=== PATIENT | female | born 1980 ===

== ENCOUNTER 2016-12-14 11:33 | Emergency (ER) | payer MEDICARE, MEDICAID ==
[2016-12-14 11:35] VITALS: BMI 41.4
[2016-12-14 11:37] VITALS: BP 128/68; PULSE 71; RESP 16; TEMP 98.1; O2SAT 100
--- NOTE | 2016-12-14 11:47 | ED PDOC ---
HPI: General Adult Time Seen by Provider: 12/14/16 11:43 Chief Complaint (Provider): left ankle pain History Per: Patient History/Exam Limitations: no limitations Additional Complaint(s): 36yo female comes to the ED stating she woke up this morning unable to bear weight on the left ankle. Denies trauma, falls, any other injury to the site. Denies heavy lifting. States she walked 28,000 steps yesterday. patient states she was seen by an orthopedist recently and was told she will need fusion surgery. Last menstrual period was 11/19/2016 Past Medical History Reviewed: Historical Data, Nursing Documentation, Vital Signs Vital Signs: Last Vital Signs Temp 98.1 F 12/14/16 11:36 Pulse 71 12/14/16 11:36 Resp 16 12/14/16 11:36 BP 128/68 12/14/16 11:36 Pulse Ox 100 12/14/16 13:38 - Medical History PMH: Anemia, Asthma, Fibromyalgia, HTN, Osteoporosis Denies: Chronic Kidney Disease - Surgical History Surgical History: Cholecystectomy, Hernia Repair, Tonsillectomy, (1) - Family History Family History: States: Unknown Family Hx - Home Medications Home Medications: Ambulatory Orders Medication Instructions Recorded Bisacodyl [Dulcolax] 10 mg RC BID PRN #10 supp.rect 02/15/16 Ciprofloxacin [Cipro] 500 mg PO BID #14 tab 02/15/16 Magnesium Citrate [Citrate of 50 ml PO BID PRN #1 bottle 02/15/16 Magnesia] traMADol [Ultram] 50 mg PO TID PRN #12 tab 02/15/16 Naproxen [Naprosyn Tab] 1 tab PO Q8 PRN #15 tab 08/05/16 oxyCODONE/Acetaminophen [Percocet 1 ea PO Q6 #15 tab 08/05/16 5/325 mg Tab] predniSONE [predniSONE Tab] 2 tab PO DAILY #10 tab 08/05/16 traMADol [Ultram] 50 mg PO Q8H PRN #5 tab 10/20/16 Naproxen [Naprosyn] 500 mg PO BID PRN #20 tablet 12/14/16 - Allergies Allergies/Adverse Reactions: Allergies Allergy/AdvReac Type Severity Reaction Status Date / Time No Known Allergies Allergy Verified 08/05/16 19:49 Review of Systems ROS Statement: Except As Marked, All Systems Reviewed And Found Negative Musculoskeletal: Positive for: Other (ankle pain) Physical Exam - Reviewed Nursing Documentation Reviewed: Yes Vital Signs Reviewed: Yes - Physical Exam Appears: Positive for: Well, Non-toxic, No Acute Distress Head Exam: Positive for: ATRAUMATIC, NORMAL INSPECTION, NORMOCEPHALIC Skin: Positive for: Warm, Dry Extremity: Positive for: Tenderness (tender left plantar fascia with a little bit of increased sensitivity on dorsum of left foot. mild tenderness on lateral malleolus), Other (Good pulses bilaterally. mildly decreased strength due to pain on left. ). Negative for: Calf Tenderness, Deformity - ECG O2 Sat by Pulse Oximetry: 100 (RA) Pulse Ox Interpretation: Normal Medical Decision Making Medical Decision Makin XR Left foot, XR Left Ankle, Naprosyn, Tylenol ordered. Will consult podiatry. [id number] Patient was seen by podiatry. Disposition - Clinical Impression Clinical Impression: Overuse syndrome of foot - Patient ED Disposition Is Patient to be Admitted: No Doctor Will See Patient In The: Office Counseled Patient/Family Regarding: Diagnosis, Need For Followup, Rx Given - Disposition Referrals: [facility] [Outside] Disposition: Routine/Home Disposition Time: 14:03 Condition: STABLE Additional Instructions: Follow up with your personal sand mixer operator or with Dr. Adam Alvares, the podiatry who was ip technology transactions attorney when you visited the ER. Prescriptions: Naproxen [Naprosyn] 500 mg PO BID PRN #20 tablet PRN Reason: Pain, Moderate (4-7) Instructions: Arthralgia (ED) - POA Present On Arrival: None Additional Comments - Additional Comments Additional Comments: Scribe Attestation: Documented by Emerson Peñaloza acting as a scribe for Kassie Tamayo MD. Provider Scribe Attestation: All medical record entries made by the Scribe were at my direction and personally dictated by me. I have reviewed the chart and agree that the record accurately reflects my personal performance of the history, physical exam, medical decision making, and the department course for this patient. I have also personally directed, reviewed, and agree with the discharge instructions and disposition.
[2016-12-14] MEDS ORDERED: Naproxen 500 MG TAB PO ONE ×2 (11:54→11:58)
--- NOTE | 2016-12-14 12:51 | CP.PCM.CON ---
History of Present Illness - History of Present Illness History of Present Illness: PODIATRY PROGRESS NOTE FOR DR. ALVARES: 36 yo female patient presents to the ED today with left foot/ankle pain. Pt says that she took 28,000 steps on , has been able to walk until today. Says she cannot put weight to the left foot today. Says this amount of walking is her norm and she typically walks at least 10,000 steps /day. Says the pain is all over top of her left foot/ankle and outside of ankle. Says she also has history of plantar fasciitis. Has not seen her casing in line setter in 4 months. Says she was told at her last podiatry visit that she needed ankle fusions. Denies f/n/v/ c/sob/cp. Rates the pain as a 5/10, says heat helps, has tried tylenol with some relief. 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 - HEMATOLOGICAL/ONCOLOGICAL Hx Anemia: Yes - INTEGUMENTARY Hx Dermatological Problems: No - MUSCULOSKELETAL/RHEUMATOLOGICAL Hx Osteoporosis: Yes - GASTROINTESTINAL Hx Gastrointestinal Disorders: No - GENITOURINARY/GYNECOLOGICAL Hx Genitourinary Disorders: Yes Other/Comment: PCOS, Right Ovarian Cyst - PSYCHIATRIC Hx Psychophysiologic Disorder: No Hx Substance Use: No - SURGICAL HISTORY Hx Cholecystectomy: Yes Hx Tonsillectomy: Yes - ANESTHESIA Hx Anesthesia: Yes Hx Anesthesia Reactions: No Hx Malignant Hyperthermia: No Meds Home Medications: Home Medication List Medication Instructions Recorded Confirmed Type Naproxen [Naprosyn] 500 mg PO BID PRN #20 tablet 12/14/16 Rx Allergies/Adverse Reactions: Allergies Allergy/AdvReac Type Severity Reaction Status Date / Time No Known Allergies Allergy Verified 08/05/16 19:49 Physical Exam - Constitutional Appears: Well, Non-toxic, No Acute Distress - Extremities Exam Extremities exam: Negative for: calf tenderness Additional comments: LLE exam: VASC- pulses palpable, skin temp wnl, cap refill < 3 sec to all digits, slight non--pitting edema noted to dorsum of foot. DERM- no open wounds, no erythema NEURO- grossly intact ORTHO- able to flex and extend all digits, diffuse tenderness to dorsum of foot and lateral ankle, pedal muscle strength 5/5 in all direction, tendenress with AJ DF and STJ inversion - Neurological Exam Neurological exam: Alert, CN II-XII Intact, Oriented x3 - Psychiatric Exam Psychiatric exam: Normal Affect, Normal Mood Results - Vital Signs Recent Vital Signs: Last Vital Signs Temp 98.1 F 12/14/16 11:36 Pulse 71 12/14/16 11:36 Resp 16 12/14/16 11:36 BP 128/68 12/14/16 11:36 Pulse Ox 100 12/14/16 12:09 Assessment & Plan - Assessment and Plan (Free Text) Assessment: 36 yo female with left foot/ankle pain secondary to overuse injury Plan: -Pt S&E in ED -Plan discussed with Dr. Alvares -Left foot/ankle x-rays reviewed: no acute fx or dislocation seen -Surgical shoe dispensed and applied -Advised pt to rest, ice, elevate -Take NSAIDS for pain relief -F/u with Dr. Alvares or w/ your regular casing in line setter.
--- NOTE | 2016-12-14 14:08 | RAD ---
PROCEDURE: Left Ankle Radiographs. HISTORY: acute pain w/o injury COMPARISON: 11/10/2016. FINDINGS: BONES: No acute fracture. Well corticated osseous excrescence adjacent to the left tibia finding identified previously appear JOINTS: Normal. No osteoarthritis. Ankle mortise maintained. Talar dome intact SOFT TISSUES: Normal. OTHER FINDINGS: None. IMPRESSION: No acute findings related to/accounting for the clinical presentation. No significant interval change compared to the prior examination(s).
--- NOTE | 2016-12-15 09:22 | RAD ---
PROCEDURE: Left Foot Radiographs. HISTORY: Acute pain w/o injury COMPARISON: 10/20/2016 FINDINGS: BONES: There is no acute displaced fracture or bone destruction. Bone alignment and mineralization are normal. JOINTS: The joint spaces are preserved. SOFT TISSUES: There is mild dorsal soft tissue swelling. OTHER FINDINGS: None. IMPRESSION: No acute fracture or dislocation.
== END 2016-12-14 14:28 | disposition home or self-care (01) ==
LOC: H.ER 11:33
DX: M25.572 Pain in left ankle and joints of left foot (principal); M70.9 Unspecified soft tissue disorder related to use, overuse and pressure; I10 Essential (primary) hypertension; J45.909 Unspecified asthma, uncomplicated; M79.7 Fibromyalgia

== ENCOUNTER 2017-01-09 09:34 | Emergency (ER) | payer MEDICARE ==
[2017-01-09 09:35] VITALS: BMI 41.4
--- NOTE | 2017-01-09 10:35 | ED PDOC ---
Upper Extremity Pain/Injury Time Seen by Provider: 01/09/17 09:54 Chief Complaint (Nursing): Abnormal Skin Integrity History Per: Patient History/Exam Limitations: no limitations Onset/Duration Of Symptoms: Days (2), Gradual Current Symptoms Are (Timing): Still Present Quality: Dull Severity: Mild Elbow (Pic): 1 - Swelling, Erythema, Pain Worse W/Movement Additional History Per: Patient Additional Complaint(s): c/o pain, redness, swelling, and pus on her right elbow. Reports 100.2 last night. Patient hit her right elbow on the door 2 days ago. no chills no prev sx Past Medical History Reviewed: Historical Data, Nursing Documentation, Vital Signs Vital Signs: Last Vital Signs Temp 98.3 F 01/09/17 09:38 Pulse 90 01/09/17 09:38 Resp 19 01/09/17 09:38 BP 123/84 01/09/17 09:38 Pulse Ox 99 01/09/17 09:38 - Medical History PMH: Anemia, Asthma, Fibromyalgia, HTN, Osteoporosis Denies: Chronic Kidney Disease - Surgical History Surgical History: Cholecystectomy, Hernia Repair, Tonsillectomy, (1) - Family History Family History: States: Unknown Family Hx - Living Arrangements Living Arrangements: With Family - Social History Current smoker - smoking cessation education provided: No Drugs: Denies - Immunization History Hx Tetanus Toxoid Vaccination: No Hx Influenza Vaccination: No Hx Pneumococcal Vaccination: No - Home Medications Home Medications: Ambulatory Orders Medication Instructions Recorded Bisacodyl [Dulcolax] 10 mg RC BID PRN #10 supp.rect 02/15/16 Ciprofloxacin [Cipro] 500 mg PO BID #14 tab 02/15/16 Magnesium Citrate [Citrate of 50 ml PO BID PRN #1 bottle 02/15/16 Magnesia] traMADol [Ultram] 50 mg PO TID PRN #12 tab 02/15/16 Naproxen [Naprosyn Tab] 1 tab PO Q8 PRN #15 tab 08/05/16 oxyCODONE/Acetaminophen [Percocet 1 ea PO Q6 #15 tab 08/05/16 5/325 mg Tab] predniSONE [predniSONE Tab] 2 tab PO DAILY #10 tab 08/05/16 traMADol [Ultram] 50 mg PO Q8H PRN #5 tab 10/20/16 Naproxen [Naprosyn] 500 mg PO BID PRN #20 tablet 12/14/16 Cephalexin [Keflex] 500 mg PO QID #40 capsule 01/09/17 Clindamycin [Cleocin] 300 mg PO QID #40 cap 01/09/17 oxyCODONE/Acetaminophen [Percocet 1 ea PO Q6 PRN #15 tab 01/09/17 5/325 mg Tab] - Allergies Allergies/Adverse Reactions: Allergies Allergy/AdvReac Type Severity Reaction Status Date / Time No Known Allergies Allergy Verified 08/05/16 19:49 Review of Systems ROS Statement: Except As Marked, All Systems Reviewed And Found Negative Constitutional: Positive for: Fever. Negative for: Chills Cardiovascular: Negative for: Chest Pain, Palpitations Respiratory: Negative for: Cough, Shortness of Breath Musculoskeletal: Positive for: Arm Pain (left elbow pain with erythema and swelling) Neurological: Negative for: Weakness, Numbness Physical Exam - Reviewed Nursing Documentation Reviewed: Yes Vital Signs Reviewed: Yes - Physical Exam Appears: Positive for: Well, No Acute Distress Head Exam: Positive for: ATRAUMATIC, NORMAL INSPECTION, NORMOCEPHALIC Eye Exam: Positive for: Normal appearance, EOMI, PERRL Neck: Positive for: Normal, Painless ROM, Supple Cardiovascular/Chest: Positive for: Regular Rate, Rhythm Respiratory: Positive for: Normal Breath Sounds Pulses-Radial (L): 2+ Pulses-Radial (R): 2+ Gastrointestinal/Abdominal: Positive for: Normal Exam, Bowel Sounds, Soft. Negative for: Tenderness Extremity: Positive for: Normal ROM, Tenderness (at left elbow with mod erythema nad swelling small daraing abscess no fluctuance), Swelling. Negative for: Calf Tenderness, Capillary Refill, Deformity Neurologic/Psych: Positive for: Alert, car rental sales assistant II-XII, Oriented. Negative for: Motor/Sensory Deficits - Laboratory Results Result Diagrams: 01/09/17 11:11 01/09/17 11:11 - ECG O2 Sat by Pulse Oximetry: 99 Pulse Ox Interpretation: Normal - Progress ED Course And Treament: no fluib in elbow joint, no signso fo sepsis or septic arthritis advise close f/ u with cultured will place on clinda and keflex. percocet for pain. pt agree's with plan. Re-evaluation Time: 12:35 Condition: Improved Disposition - Clinical Impression Clinical Impression: Olecranon bursitis of right elbow - Patient ED Disposition Is Patient to be Admitted: No Counseled Patient/Family Regarding: Studies Performed, Diagnosis, Need For Followup, Rx Given - Disposition Referrals: [facility] [Outside] (2 to 3 days for a wound check) Disposition: Routine/Home Disposition Time: 12:37 Condition: GOOD Prescriptions: Cephalexin [Keflex] 500 mg PO QID #40 capsule Clindamycin [Cleocin] 300 mg PO QID #40 cap oxyCODONE/Acetaminophen [Percocet 5/325 mg Tab] 1 ea PO Q6 PRN #15 tab PRN Reason: Pain, Moderate (4-7)
[2017-01-09] MEDS ORDERED: Vancomycin 1 g Inj ONE (10:58)
[2017-01-09 11:16] LABS: BASO % 0.4 % (0.0-2.0); EOS # 0.1 K/uL (0.0-0.7); EOS % 1.1 % (0.0-4.0); HEMATOCRIT 35.7 % (34.0-47.0); LYMPH # 1.4 K/uL (1.0-4.3); LYMPH % 19.9 % (20.0-40.0); MEAN PLATELET VOLUME 9.1 fl (7.2-11.7); MONO # 0.6 K/uL (0.0-0.8); MONO % 8.2 % (0.0-10.0); NEUT % 70.4 % (50.0-75.0); RED CELL DISTRIBUTION WIDTH 15.4 % (11.5-14.5); WHITE BLOOD COUNT 7.1 K/uL (4.8-10.8)
--- NOTE | 2017-01-09 11:21 | RAD ---
PROCEDURE: Radiographs of the right elbow. HISTORY: pain and swelling COMPARISON: None available. FINDINGS: BONES: No acute displaced fracture. JOINTS: No dislocation. SOFT TISSUES: Marked soft tissue swelling. No evidence of radiopaque foreign body. JOINT EFFUSION: No significant joint effusion. OTHER FINDINGS: None IMPRESSION: Marked soft tissue swelling. No acute displaced fracture, dislocation, or significant joint effusion identified. If symptoms persist, or if there is continued clinical concern, x-ray follow-up in 7-10 days should be considered.
[2017-01-09 11:37] LABS: CHLORIDE 107 mmol/L (98-107)
[2017-01-09 11:38] LABS: POTASSIUM 5.3 MMOL/L (3.6-5.0); SODIUM 140 mmol/l (132-148)
[2017-01-09 11:40] LABS: ALKALINE PHOSPHATASE 64 U/L (38-126); ALT/SGPT 23 U/L (9-52); AST/SGOT 93 U/L (14-36); BILIRUBIN,TOTAL 0.9 mg/dl (0.2-1.3); BLOOD UREA NITROGEN 12 mg/dl (7-17); CARBON DIOXIDE 22 mmol/L (22-30); GFR AFRICAN-AMERICAN > 60; TOTAL PROTEIN 8.2 G/DL (6.3-8.2)
[2017-01-09 11:41] LABS: GLUCOSE,RANDOM 85 mg/dL (65-105)
[2017-01-09] MEDS ORDERED: cefTRIAXone 2 GM in Sodium Chloride 0.9% 100 ML IVPB ONE (12:00)
[2017-01-09 12:19] LABS: CALCIUM 8.8 mg/dL (8.4-10.2)
[2017-01-09 14:30] VITALS: BP 155/68; PULSE 82; RESP 18; TEMP 98.2; O2SAT 98
== END 2017-01-09 14:30 | disposition home or self-care (01) ==
LOC: H.ER 09:34
DX: M70.21 Olecranon bursitis, right elbow (principal); I10 Essential (primary) hypertension; M79.7 Fibromyalgia; M81.0 Age-related osteoporosis without current pathological fracture; J45.909 Unspecified asthma, uncomplicated
CPT/HCPCS: 73080; 80053; 81025; 85025; 85651; 87070; 87181; 96365; 96366; 99284; J0696

== ENCOUNTER 2017-01-11 22:53 | Emergency (ER) | payer MEDICARE ==
[2017-01-11 22:53] VITALS: BMI 41.4
[2017-01-11 23:10] VITALS: BP 119/79; PULSE 100; RESP 16; TEMP 98.4; O2SAT 99
--- NOTE | 2017-01-12 01:31 | ED PDOC ---
HPI: General Adult Time Seen by Provider: 01/11/17 23:24 Chief Complaint (Nursing): Abnormal Skin Integrity Chief Complaint (Provider): wound check History Per: Patient Additional Complaint(s): pt returns to ED for reeval of wound to R elbow. was seen here for same 3 days ago, given clindamycin and keflex. redness and swelling are improving but pt is concerned about blister that appeared on skin surface. no fever, numbness, weakness distally or red streaking proximally. Past Medical History Reviewed: Historical Data, Nursing Documentation, Vital Signs Vital Signs: Last Vital Signs Temp 98.4 F 01/11/17 23:06 Pulse 100 H 01/11/17 23:06 Resp 16 01/11/17 23:06 BP 119/79 01/11/17 23:06 Pulse Ox 99 01/11/17 23:06 - Medical History PMH: Anemia, Asthma, Fibromyalgia, HTN, Osteoporosis Denies: Chronic Kidney Disease - Surgical History Surgical History: Cholecystectomy, Hernia Repair, Tonsillectomy, (1) - Family History Family History: States: No Known Family Hx - Social History Current smoker - smoking cessation education provided: No Alcohol: None - Immunization History Hx Tetanus Toxoid Vaccination: No Hx Influenza Vaccination: No Hx Pneumococcal Vaccination: No - Home Medications Home Medications: Ambulatory Orders Medication Instructions Recorded Bisacodyl [Dulcolax] 10 mg RC BID PRN #10 supp.rect 02/15/16 Ciprofloxacin [Cipro] 500 mg PO BID #14 tab 02/15/16 Magnesium Citrate [Citrate of 50 ml PO BID PRN #1 bottle 02/15/16 Magnesia] traMADol [Ultram] 50 mg PO TID PRN #12 tab 02/15/16 Naproxen [Naprosyn Tab] 1 tab PO Q8 PRN #15 tab 08/05/16 oxyCODONE/Acetaminophen [Percocet 1 ea PO Q6 #15 tab 08/05/16 5/325 mg Tab] predniSONE [predniSONE Tab] 2 tab PO DAILY #10 tab 08/05/16 traMADol [Ultram] 50 mg PO Q8H PRN #5 tab 10/20/16 Naproxen [Naprosyn] 500 mg PO BID PRN #20 tablet 12/14/16 Cephalexin [Keflex] 500 mg PO QID #40 capsule 01/09/17 Clindamycin [Cleocin] 300 mg PO QID #40 cap 01/09/17 oxyCODONE/Acetaminophen [Percocet 1 ea PO Q6 PRN #15 tab 01/09/17 5/325 mg Tab] - Allergies Allergies/Adverse Reactions: Allergies Allergy/AdvReac Type Severity Reaction Status Date / Time No Known Allergies Allergy Verified 08/05/16 19:49 Review of Systems ROS Statement: Except As Marked, All Systems Reviewed And Found Negative Skin: Positive for: Lesions Physical Exam - Reviewed Nursing Documentation Reviewed: Yes Vital Signs Reviewed: Yes - Physical Exam Appears: Positive for: Well, Non-toxic, No Acute Distress Skin: Positive for: Normal Color (mild errythema R elbow w/ purulent bulla. no fluctuance or crepitis. ), Warm Neck: Positive for: Normal, Painless ROM Cardiovascular/Chest: Positive for: Regular Rate, Rhythm Respiratory: Positive for: CNT, Normal Breath Sounds Gastrointestinal/Abdominal: Positive for: Normal Exam, Bowel Sounds, Soft. Negative for: Tenderness Extremity: Positive for: Normal ROM. Negative for: Tenderness Neurologic/Psych: Positive for: Alert, Oriented. Negative for: Motor/Sensory Deficits - ECG O2 Sat by Pulse Oximetry: 99 Medical Decision Making Medical Decision Making: bullae deroofed with forceps and #15 blade. purulent drainage present. previous record reviewed. aspirate shows staph aureus suseptible to clindamycin. sx improving per pt. will d/c home to f/u pmd. Disposition - Clinical Impression Clinical Impression: Cellulitis of right elbow - Patient ED Disposition Is Patient to be Admitted: No - Disposition Referrals: Zeyad Hamlin MD [Primary Care Provider] - Disposition: Routine/Home Disposition Time: 01:31 Condition: GOOD Additional Instructions: continue at home meds. f/u pmd for further care. return to ED for severe symptoms. Instructions: Cellulitis (ED)
== END 2017-01-12 01:48 | disposition home or self-care (01) ==
LOC: H.ER 22:53
DX: L03.113 Cellulitis of right upper limb (principal); I10 Essential (primary) hypertension; J45.909 Unspecified asthma, uncomplicated; M79.7 Fibromyalgia

== ENCOUNTER 2017-03-17 09:39 | Emergency (ER) | payer MEDICARE, MEDICAID ==
[2017-03-17 09:45] VITALS: BMI 39.9
--- NOTE | 2017-03-17 10:18 | ED PDOC ---
HPI: Abdomen Time Seen by Provider: 03/17/17 09:49 Chief Complaint (Nursing): Abdominal Pain Chief Complaint (Provider): Abdominal Pain History Per: Patient History/Exam Limitations: no limitations Onset/Duration Of Symptoms: Days (x2 days) Current Symptoms Are (Timing): Still Present Additional Complaint(s): 37 y/o female with a past medical history of hypertension who presents to the emergency department with a complaint of a lower abdominal pain that radiates to the back x2 days. Associated with a headache, nausea, and shortness of breath. Reports using her asthma pump more than usual. States her blood pressure was 140/81 this morning and takes labetalol for her condition. Patient used heating pads and ibuprofen for relief of symptoms. Denies any further medical complaints. PMD: Dr. Zeyad Hamlin MD Abnormal Vaginal Bleeding: No Past Medical History Reviewed: Historical Data, Nursing Documentation, Vital Signs Vital Signs: Last Vital Signs Temp 98.7 F 03/17/17 09:45 Pulse 73 03/17/17 09:45 Resp 18 03/17/17 09:45 BP 127/89 03/17/17 09:45 Pulse Ox 98 03/17/17 14:11 - Medical History PMH: Anemia, Asthma, Depression, Fibromyalgia, HTN, Osteoporosis Denies: Chronic Kidney Disease - Surgical History Surgical History: Appendectomy, Cholecystectomy, Hernia Repair, Tonsillectomy, C -Section (1) - Family History Family History: States: Unknown Family Hx - Social History Current smoker - smoking cessation education provided: No Alcohol: None Drugs: Denies - Immunization History Hx Tetanus Toxoid Vaccination: No Hx Influenza Vaccination: No Hx Pneumococcal Vaccination: No - Home Medications Home Medications: Ambulatory Orders Medication Instructions Recorded Bisacodyl [Dulcolax] 10 mg RC BID PRN #10 supp.rect 02/15/16 Ciprofloxacin [Cipro] 500 mg PO BID #14 tab 02/15/16 Magnesium Citrate [Citrate of 50 ml PO BID PRN #1 bottle 02/15/16 Magnesia] traMADol [Ultram] 50 mg PO TID PRN #12 tab 02/15/16 Naproxen [Naprosyn Tab] 1 tab PO Q8 PRN #15 tab 08/05/16 oxyCODONE/Acetaminophen [Percocet 1 ea PO Q6 #15 tab 08/05/16 5/325 mg Tab] predniSONE [predniSONE Tab] 2 tab PO DAILY #10 tab 08/05/16 traMADol [Ultram] 50 mg PO Q8H PRN #5 tab 10/20/16 Naproxen [Naprosyn] 500 mg PO BID PRN #20 tablet 12/14/16 Cephalexin [Keflex] 500 mg PO QID #40 capsule 01/09/17 Clindamycin [Cleocin] 300 mg PO QID #40 cap 01/09/17 oxyCODONE/Acetaminophen [Percocet 1 ea PO Q6 PRN #15 tab 01/09/17 5/325 mg Tab] Naproxen [Naprosyn] 500 mg PO BID PRN #15 tablet 03/17/17 - Allergies Allergies/Adverse Reactions: Allergies Allergy/AdvReac Type Severity Reaction Status Date / Time No Known Allergies Allergy Verified 08/05/16 19:49 Review of Systems ROS Statement: Except As Marked, All Systems Reviewed And Found Negative Constitutional: Positive for: Fever (Subjective) Respiratory: Positive for: Shortness of Breath Gastrointestinal: Positive for: Nausea, Abdominal Pain (Lower region) Musculoskeletal: Positive for: Back Pain Neurological: Positive for: Headache Physical Exam - Reviewed Nursing Documentation Reviewed: Yes Vital Signs Reviewed: Yes - Physical Exam Appears: Positive for: Non-toxic, No Acute Distress Head Exam: Positive for: ATRAUMATIC, NORMAL INSPECTION, NORMOCEPHALIC Skin: Positive for: Normal Color, Warm, Dry Eye Exam: Positive for: Normal appearance, EOMI, PERRL Neck: Positive for: Normal, Supple Cardiovascular/Chest: Positive for: Regular Rate, Rhythm. Negative for: Murmur Respiratory: Positive for: Normal Breath Sounds. Negative for: Accessory Muscle Use, Wheezing, Respiratory Distress Gastrointestinal/Abdominal: Positive for: Soft, Tenderness (Minimal RLQ tenderness). Negative for: Normal Exam, Guarding, Rebound Back: Positive for: Normal Inspection Extremity: Positive for: Normal ROM Neurologic/Psych: Positive for: Alert, remote sensing analyst II-XII, Oriented. Negative for: Motor/Sensory Deficits - Laboratory Results Result Diagrams: 03/17/17 10:20 03/17/17 10:20 - ECG O2 Sat by Pulse Oximetry: 98 (RA) Pulse Ox Interpretation: Normal Medical Decision Making Medical Decision Making: Time: 10:01 Initial impression: Abdominal Pain Initial plan: --CMP --Urine DIP --Urine Preg --CBC w. diff --PTT --Prothrombin --Urinalysis --Reevaluation Time: 10:38 --Abd & Pelvis IV Contrast CT --Transvaginal US Time: 13:39 --Transvaginal US FINDINGS: UTERUS: Measures 8.2 x 3.3 x 4.9 cm. Anteverted. ENDOMETRIUM: Measures 1 cm in diameter. CERVIX: Nabothian cysts. RIGHT OVARY: Measures 3.4 x 2.8 x 2.0 cm. Blood flow is demonstrated. Follicles. LEFT OVARY: Measures 2.7 x 1.8 x 2.8 cm. Blood flow is demonstrated. Follicles. FREE FLUID: No significant free fluid noted. OTHER FINDINGS: None. IMPRESSION: No acute pathology demonstrated. Incidental findings as above. Time: 13:58 --Abdomen CT FINDINGS: LOWER THORAX: Unremarkable. LIVER: Unremarkable. No gross lesion or ductal dilatation. GALLBLADDER AND BILE DUCTS: Status post cholecystectomy PANCREAS: Unremarkable. No gross lesion or ductal dilatation. SPLEEN: Unremarkable. ADRENALS: Unremarkable. No mass. KIDNEYS AND URETERS: Unremarkable. No hydronephrosis. No solid mass. VASCULATURE: Unremarkable. No aortic aneurysm. BOWEL: Evidence of prior gastric surgery, possibly gastric bypass surgery. Gastrojejunostomy. Question of partial gastrectomy. There is a small bowel anastomosis noted in the left lower quadrant of the abdomen with focal dilatation of the bowel. There is no evidence of bowel obstruction. There is diverticulosis of the sigmoid colon. There is no evidence of diverticulitis. APPENDIX: Normal appendix. PERITONEUM: No ascites. Apparent mesh repair of a supraumbilical ventral hernia. LYMPH NODES: Unremarkable. No enlarged lymph nodes. BLADDER: Heterogeneous attenuation within the bladder due to mixing of excreted contrast with normal urine. REPRODUCTIVE: Unremarkable uterus. BONES: Chronic compression deformity L1 vertebra, unchanged in appearance from prior CT examination. OTHER FINDINGS: None. IMPRESSION: No evidence of appendicitis. No bowel obstruction. Status post cholecystectomy. Questionable gastric bypass surgery with partial gastrectomy. Additional findings as above. Time: 14:05 Upon provider reevaluation patient is feeling better, is medically stable, and requires no further treatment in the ED at this time. Patient will be discharge home and given an Rx for Naprosyn 500 mg. Counseling was provided and all questions were answered regarding diagnosis and need for follow up with Zeyad Hamlin MD. There is agreement to discharge plan. Return if symptoms persist or worsen. Clinical Impression: Abdominal pain in female Scribe Attestation: Documented by Siena Garvey, acting as a scribe for Mami Geiger MD. Provider Scribe Attestation: All medical record entries made by the Scribe were at my direction and personally dictated by me. I have reviewed the chart and agree that the record accurately reflects my personal performance of the history, physical exam, medical decision making, and the department course for this patient. I have also personally directed, reviewed, and agree with the discharge instructions and disposition. Disposition - Clinical Impression Clinical Impression: Abdominal pain in female - Patient ED Disposition Is Patient to be Admitted: No Counseled Patient/Family Regarding: Studies Performed, Diagnosis, Need For Followup - Disposition Referrals: Zeyad Halmin MD [Family Provider] - Disposition: Routine/Home Disposition Time: 14:05 Condition: STABLE Prescriptions: Naproxen [Naprosyn] 500 mg PO BID PRN #15 tablet PRN Reason: Pain, Moderate (4-7) Instructions: Abdominal Pain (ED) Forms: [facility] (Nepali)
[2017-03-17 10:37] LABS: BASO % 0.7 % (0.0-2.0); EOS # 0.1 K/uL (0.0-0.7); EOS % 1.1 % (0.0-4.0); HEMATOCRIT 34.6 % (34.0-47.0); LYMPH # 1.8 K/uL (1.0-4.3); LYMPH % 30.6 % (20.0-40.0); MEAN CELL VOLUME 85.2 fl (81.0-99.0); MEAN CORPUSCULAR HEMOGLOBIN 27.9 pg (27.0-31.0); MEAN CORPUSCULAR HGB CONC 32.7 g/dL (33.0-37.0); MEAN PLATELET VOLUME 8.7 fl (7.2-11.7); MONO # 0.5 K/uL (0.0-0.8); NEUT # 3.4 K/uL (1.8-7.0); NEUT % 58.6 % (50.0-75.0); NRBC % 0.1 % (0.0-0.0); RED CELL DISTRIBUTION WIDTH 16.2 % (11.5-14.5); WHITE BLOOD COUNT 5.8 K/uL (4.8-10.8)
[2017-03-17 10:41] LABS: ALB/GLOB RATIO 1.3 (1.0-2.1); ALKALINE PHOSPHATASE 60 U/L (38-126); ALT/SGPT 32 U/L (9-52); AST/SGOT 22 U/L (14-36); BILIRUBIN,TOTAL 0.3 mg/dl (0.2-1.3); BLOOD UREA NITROGEN 13 mg/dl (7-17); CARBON DIOXIDE 25 mmol/L (22-30); CHLORIDE 107 mmol/L (98-107); GFR AFRICAN-AMERICAN > 60; GLUCOSE,RANDOM 87 mg/dL (65-105); POTASSIUM 3.9 MMOL/L (3.6-5.0); RBC URINE 2 /hpf (0-3); SODIUM 140 mmol/l (132-148); TOTAL PROTEIN 7.1 G/DL (6.3-8.2); URINE BILIRUBIN NEGATIVE (NEGATIVE); URINE BLOOD NEGATIVE (NEGATIVE); URINE COLOR YELLOW (YELLOW); URINE GLUCOSE (UA) NEG (Normal); URINE KETONE NEGATIVE (NEGATIVE); URINE LEUKOCYTE ESTERASE NEG Leu/uL (Negative); URINE PROTEIN NEGATIVE (NEGATIVE); WBC URINE 3 /hpf (0-5)
[2017-03-17 10:56] LABS: PARTIAL THROMBOPLASTIN TIME 30.1 Seconds (25.6-37.1)
[2017-03-17] MEDS ORDERED: Sodium Chloride 0.9% 50 ML IV ONE (12:49)
[2017-03-17] MEDS ORDERED: Iohexol 300 100 ML IJ ONE (12:49)
--- NOTE | 2017-03-17 13:40 | US ---
HISTORY: RLQ pain COMPARISON: Transvaginal pelvic ultrasound performed 02/15/16 TECHNIQUE: Transvaginal pelvic ultrasound FINDINGS: UTERUS: Measures 8.2 x 3.3 x 4.9 cm. Anteverted. ENDOMETRIUM: Measures 1 cm in diameter. CERVIX: Nabothian cysts. RIGHT OVARY: Measures 3.4 x 2.8 x 2.0 cm. Blood flow is demonstrated. Follicles. LEFT OVARY: Measures 2.7 x 1.8 x 2.8 cm. Blood flow is demonstrated. Follicles. FREE FLUID: No significant free fluid noted. OTHER FINDINGS: None. IMPRESSION: No acute pathology demonstrated. Incidental findings as above.
--- NOTE | 2017-03-17 14:00 | CT ---
PROCEDURE: CT Abdomen and Pelvis with contrast HISTORY: RLQ pain COMPARISON: None. TECHNIQUE: Contrast dose: 40 mL Omnipaque 300 Please note that only approximately 40 mL was successfully administered intravenously due to leakage from the intravenous port during the injection. Radiation dose: Total exam DLP = 956.93 mGy-cm. This CT exam was performed using one or more of the following dose reduction techniques: Automated exposure control, adjustment of the mA and/or kV according to patient size, and/or use of iterative reconstruction technique. FINDINGS: LOWER THORAX: Unremarkable. LIVER: Unremarkable. No gross lesion or ductal dilatation. GALLBLADDER AND BILE DUCTS: Status post cholecystectomy PANCREAS: Unremarkable. No gross lesion or ductal dilatation. SPLEEN: Unremarkable. ADRENALS: Unremarkable. No mass. KIDNEYS AND URETERS: Unremarkable. No hydronephrosis. No solid mass. VASCULATURE: Unremarkable. No aortic aneurysm. BOWEL: Evidence of prior gastric surgery, possibly gastric bypass surgery. Gastrojejunostomy. Question of partial gastrectomy. There is a small bowel anastomosis noted in the left lower quadrant of the abdomen with focal dilatation of the bowel. There is no evidence of bowel obstruction. There is diverticulosis of the sigmoid colon. There is no evidence of diverticulitis. APPENDIX: Normal appendix. PERITONEUM: No ascites. Apparent mesh repair of a supraumbilical ventral hernia. LYMPH NODES: Unremarkable. No enlarged lymph nodes. BLADDER: Heterogeneous attenuation within the bladder due to mixing of excreted contrast with normal urine. REPRODUCTIVE: Unremarkable uterus. BONES: Chronic compression deformity L1 vertebra, unchanged in appearance from prior CT examination. OTHER FINDINGS: None. IMPRESSION: No evidence of appendicitis. No bowel obstruction. Status post cholecystectomy. Questionable gastric bypass surgery with partial gastrectomy. Additional findings as above.
[2017-03-17 14:48] VITALS: BP 110/68; PULSE 74; RESP 19; TEMP 98.3; O2SAT 100
== END 2017-03-17 14:52 | disposition home or self-care (01) ==
LOC: H.ER 09:39
DX: R10.9 Unspecified abdominal pain (principal); R51 Headache; J45.909 Unspecified asthma, uncomplicated; F32.9 Major depressive disorder, single episode, unspecified; I10 Essential (primary) hypertension; M79.7 Fibromyalgia; Z90.49 Acquired absence of other specified parts of digestive tract
CPT/HCPCS: 74177; 76830; 80053; 81003; 81025; 85025; 85610; 85730; 99284; Q9967

== ENCOUNTER 2017-10-17 13:15 | Emergency (ER) | payer MEDICARE, MEDICAID ==
[2017-10-17 13:15] VITALS: BMI 39.9
[2017-10-17 13:22] VITALS: BP 121/82; PULSE 70; RESP 16; TEMP 97.8; O2SAT 100
--- NOTE | 2017-10-17 13:37 | ED PDOC ---
HPI: Chest Pain Time Seen by Provider: 10/17/17 13:36 Chief Complaint (Nursing): Chest Pain Chief Complaint (Provider): chest pain History Per: Patient Additional Complaint(s): 37 year female presents to emergency Department with midsternal chest pain that started 1 hour ago. Patient states she is making eggs at home when the pain started. Patient has slight shortness of breath. She called ambulance and was brought here. Patient denies cough, fever or chills, no abdominal pain, nausea, vomiting or diarrhea. Patient states she has history of anxiety, costochondritis and PE. PMD: [place] Past Medical History Reviewed: Historical Data, Nursing Documentation, Vital Signs Vital Signs: Last Vital Signs Temp 97.8 F 10/17/17 13:19 Pulse 70 10/17/17 13:19 Resp 16 10/17/17 13:19 BP 121/82 10/17/17 13:19 Pulse Ox 100 10/17/17 15:26 - Medical History PMH: Anemia, Asthma, Depression, Fibromyalgia, HTN, Osteoporosis - Surgical History Surgical History: Appendectomy, Cholecystectomy, Hernia Repair, Tonsillectomy, C -Section (1) Other surgeries: gastric bypass - Family History Family History: States: No Known Family Hx - Living Arrangements Living Arrangements: With Family - Social History Current smoker - smoking cessation education provided: No Alcohol: None Drugs: Denies - Home Medications Home Medications: Ambulatory Orders Medication Instructions Recorded Bisacodyl [Dulcolax] 10 mg RC BID PRN #10 supp.rect 02/15/16 Ciprofloxacin [Cipro] 500 mg PO BID #14 tab 02/15/16 Magnesium Citrate 50 ml PO BID PRN #1 bottle 02/15/16 traMADol [Ultram] 50 mg PO TID PRN #12 tab 02/15/16 Naproxen [Naprosyn Tab] 1 tab PO Q8 PRN #15 tab 08/05/16 oxyCODONE/Acetaminophen [Percocet 1 ea PO Q6 #15 tab 08/05/16 5/325 mg Tab] predniSONE [predniSONE Tab] 2 tab PO DAILY #10 tab 08/05/16 traMADol [Ultram] 50 mg PO Q8H PRN #5 tab 10/20/16 Naproxen [Naprosyn] 500 mg PO BID PRN #20 tablet 12/14/16 Cephalexin [Keflex] 500 mg PO QID #40 capsule 01/09/17 Clindamycin [Cleocin] 300 mg PO QID #40 cap 01/09/17 oxyCODONE/Acetaminophen [Percocet 1 ea PO Q6 PRN #15 tab 01/09/17 5/325 mg Tab] Naproxen [Naprosyn] 500 mg PO BID PRN #15 tablet 03/17/17 traMADol [Ultram] 50 mg PO TID PRN #15 tab 10/17/17 - Allergies Allergies/Adverse Reactions: Allergies Allergy/AdvReac Type Severity Reaction Status Date / Time No Known Allergies Allergy Verified 10/17/17 13:19 CEFERINO Risk Score for UA/NSTEMI - CEFERINO Risk Score Age > 64: NO 3 or more CAD Risk Factors: NO Known CAD (Stenosis greater than 50%): NO Aspirin use in past 7 days: NO Severe Angina: NO EKG ST changes greater than 0.5mm: NO Positive Cardiac Marker: NO CEFERINO Score: 0 Risk %: 5% Curb-65 Severity Score - CURB-65 Severity Score Confusion: No Bun >19mg/dl (>7mmol/L): No Respiratory Rate greater than/equal to 30: No Systolic BP <90 or Diastolic BP less than/equal 60mmHg: No Age >64: No Curb-65 Score: 0 Percentage 30-day mortality: 0.6% Wells Criteria for PE - Wells Criteria for Pulmonary Embolism Clinical Signs and Symptoms of DVT: No P.E is #1 Diagnosis, or Equally Likely: No Heart Rate >100: No Immobilization at least 3 days;Surgery previous 4 weeks: No Previous, objectively diagnosed PE or DVT: No Hemoptysis: No Malignancy w/treatment within 6 months, or palliative: No Total Score: 0 Review of Systems ROS Statement: Except As Marked, All Systems Reviewed And Found Negative Constitutional: Negative for: Fever, Chills Cardiovascular: Positive for: Chest Pain. Negative for: Palpitations, Edema, Light Headedness Respiratory: Positive for: Shortness of Breath. Negative for: Cough, SOB with Exertion, Wheezing Gastrointestinal: Negative for: Nausea, Vomiting, Abdominal Pain, Diarrhea Neurological: Negative for: Headache, Dizziness Physical Exam - Reviewed Nursing Documentation Reviewed: Yes Vital Signs Reviewed: Yes - Physical Exam Appears: Positive for: Well, Non-toxic, No Acute Distress Skin: Negative for: Rash Eye Exam: Positive for: Normal appearance Cardiovascular/Chest: Positive for: Regular Rate, Rhythm, Other (Diffuse tenderness to anterior chest wall upon palpation) Respiratory: Positive for: Normal Breath Sounds. Negative for: Wheezing, Respiratory Distress Gastrointestinal/Abdominal: Positive for: Soft. Negative for: Tenderness, Distended, Guarding Extremity: Positive for: Normal ROM Neurologic/Psych: Positive for: Alert, Oriented - Laboratory Results Result Diagrams: 10/17/17 14:30 10/17/17 14:30 Urine POC: Negative - ECG Interpretation Of ECG: Normal sinus rhythm 70 bpm, no acute changes, reviewed by PA and ED attending. O2 Sat by Pulse Oximetry: 100 Pulse Ox Interpretation: Normal - Other Rad CXR X-Ray: Interpreted by Me, Viewed By Me X-Ray Interpretation: no acute finding Medical Decision Making Medical Decision Makin37 year old with chest pain, EKG normal Plan: CBC CMP Trop D-Dimer CXR EKG IVF IV toradol D-dimer is negative. Patient states chest pain is somewhat improved after medications given. Patient states 5 days ago she fell in the tub at home injuring her lower back and left- side ribs. She was seen by primary doctor the day after the fall and had outpatient x-rays which were negative. Patient states her whole body is sore since that fall. Will DC with prescription for tramadol. Patient currently takes Naprosyn daily and was advised to continue with this medication. Patient was instructed to follow up with primary doctor in 2-3 days and is aware she can return to emergency department any time if acutely worse. Disposition - Clinical Impression Clinical Impression: Chest wall pain - Patient ED Disposition Is Patient to be Admitted: No Counseled Patient/Family Regarding: Studies Performed, Diagnosis, Need For Followup, Rx Given - Disposition Referrals: [facility] [Provider Group] Disposition: Routine/Home Disposition Time: 16:27 Condition: IMPROVED Additional Instructions: Take rx meds as directed along with other meds you usually take daily. Rest and ice affected area. Avoid heavy lifting or strenuous activity. Follow up in 1-2 days with primary care doctor or reuturn any time if acutely worse. Prescriptions: traMADol [Ultram] 50 mg PO TID PRN #15 tab PRN Reason: Pain, Moderate (4-7) Instructions: Costochondritis Forms: [employer] (Sami) Results - Lab Results Lab Results: 10/17/17 10/17/17 10/17/17 14:30 14:30 14:30 WBC 3.8 L RBC 4.19 Hgb 12.5 Hct 37.4 MCV 89.2 D MCH 29.9 MCHC 33.5 RDW 16.1 H Plt Count 233 MPV 8.6 Neut % (Auto) 50.3 Lymph % (Auto) 38.9 [place] % (Auto) 8.6 Eos % (Auto) 1.5 Baso % (Auto) 0.7 Neut # (Auto) 1.9 Lymph # (Auto) 1.5 [place] # (Auto) 0.3 Eos # (Auto) 0.1 Baso # (Auto) 0.0 D-Dimer, Quantitative 147 Sodium 141 Potassium 4.2 Chloride 104 Carbon Dioxide 25 Anion Gap 16 BUN 17 Creatinine 0.5 L Est GFR ( Amer) > 60 Est GFR (Non-Af Amer) > 60 Random Glucose 85 Calcium 9.1 Total Bilirubin 0.4 AST 44 H ALT 38 Alkaline Phosphatase 68 Troponin I < 0.0120 Total Protein 7.1 Albumin 3.8 Globulin 3.3 Albumin/Globulin Ratio 1.1
[2017-10-17] MEDS ORDERED: Sodium Chloride 0.9% 1,000 ML IV STA (14:28)
[2017-10-17 14:48] LABS: BASO % 0.7 % (0.0-2.0); EOS # 0.1 K/uL (0.0-0.7); EOS % 1.5 % (0.0-4.0); HEMOGLOBIN 12.5 g/dL (12.0-16.0); LYMPH # 1.5 K/uL (1.0-4.3); LYMPH % 38.9 % (20.0-40.0); MEAN CELL VOLUME 89.2 fl (81.0-99.0); MEAN CORPUSCULAR HEMOGLOBIN 29.9 pg (27.0-31.0); MEAN CORPUSCULAR HGB CONC 33.5 g/dL (33.0-37.0); MEAN PLATELET VOLUME 8.6 fl (7.2-11.7); MONO # 0.3 K/uL (0.0-0.8); MONO % 8.6 % (0.0-10.0); NEUT # 1.9 K/uL (1.8-7.0); NEUT % 50.3 % (50.0-75.0); NRBC % 0.2 % (0.0-0.0); RBC 4.19 Mil/uL (3.80-5.20); RED CELL DISTRIBUTION WIDTH 16.1 % (11.5-14.5); WHITE BLOOD COUNT 3.8 K/uL (4.8-10.8)
[2017-10-17 14:56] LABS: ALB/GLOB RATIO 1.1 (1.0-2.1); ALBUMIN 3.8 g/dL (3.5-5.0); ALT/SGPT 38 U/L (9-52); AST/SGOT 44 U/L (14-36); BLOOD UREA NITROGEN 17 mg/dl (7-17); CALCIUM 9.1 mg/dL (8.4-10.2); GFR AFRICAN-AMERICAN > 60; GFR NON-AFRICAN AMERICAN > 60
--- NOTE | 2017-10-17 15:53 | RAD ---
HISTORY: chest pain COMPARISON: Chest radiograph dated 02/27/2017. FINDINGS: LUNGS: No active pulmonary disease. PLEURA: No significant pleural effusion identified, no pneumothorax apparent. CARDIOVASCULAR: Cardiomediastinal silhouette within normal limits. OSSEOUS STRUCTURES: Unchanged. VISUALIZED UPPER ABDOMEN: Bilateral upper quadrant surgical clips/material redemonstrated. OTHER FINDINGS: None. IMPRESSION: No active disease.
== END 2017-10-17 16:49 | disposition home or self-care (01) ==
LOC: H.ER 13:15
DX: R07.89 Other chest pain (principal); Z86.59 Personal history of other mental and behavioral disorders; I10 Essential (primary) hypertension; J45.909 Unspecified asthma, uncomplicated; M81.0 Age-related osteoporosis without current pathological fracture; Z98.84 Bariatric surgery status
CPT/HCPCS: 71045; 80053; 81025; 84484; 85025; 85378; 96374; 99284; J1885; J7040

== ENCOUNTER 2017-12-22 11:27 | Emergency (ER) | payer MEDICARE, MEDICAID ==
[2017-12-22 11:27] VITALS: BMI 39.9
[2017-12-22 12:06] VITALS: BP 126/85; PULSE 74; TEMP 98; O2SAT 100
[2017-12-22 12:25] VITALS: RESP 18
[2017-12-22] MEDS ORDERED: Oxycodone/Acetaminophen 5/325 mg Tab PO STA (12:41)
[2017-12-22] MEDS ORDERED: Oxycodone/Acetaminophen 5/325 mg Tab ONE (12:53)
--- NOTE | 2017-12-22 13:15 | ED PDOC ---
Upper Extremity Pain/Injury Time Seen by Provider: 12/22/17 12:13 Chief Complaint (Nursing): Upper Extremity Problem/Injury Chief Complaint (Provider): Upper Extremity Problem/Injury History Per: Patient History/Exam Limitations: no limitations Current Symptoms Are (Timing): Still Present Additional Complaint(s): 37 y/o female presents to the ED complaining of right shoulder pain. States that she was lifting her baby's stroller up the stairs and she heard a pop in her right shoulder. Reports taking gabapentin and naproxen this morning for fibromyalgia. She has decreased range of motion due to pain. Denies any further medical complaints. PMD: Zeyad Hamlin MD Past Medical History Reviewed: Historical Data, Nursing Documentation, Vital Signs Vital Signs: Last Vital Signs Temp 98.0 F 12/22/17 12:22 Pulse 74 12/22/17 12:22 Resp 18 12/22/17 12:22 BP 126/85 12/22/17 12:22 Pulse Ox 100 12/22/17 12:22 - Medical History PMH: Anemia, Anxiety, Asthma, Depression, Fibromyalgia, HTN, Osteoporosis Denies: Chronic Kidney Disease - Surgical History Surgical History: Appendectomy, Cholecystectomy, Hernia Repair, Tonsillectomy, C -Section (1) - Family History Family History: States: Unknown Family Hx - Social History Current smoker - smoking cessation education provided: No (Never smoked) Alcohol: None Drugs: Denies - Immunization History Hx Tetanus Toxoid Vaccination: No Hx Influenza Vaccination: No Hx Pneumococcal Vaccination: No - Home Medications Home Medications: Ambulatory Orders Medication Instructions Recorded Bisacodyl [Dulcolax] 10 mg RC BID PRN #10 supp.rect 02/15/16 Ciprofloxacin [Cipro] 500 mg PO BID #14 tab 02/15/16 Magnesium Citrate 50 ml PO BID PRN #1 bottle 02/15/16 traMADol [Ultram] 50 mg PO TID PRN #12 tab 02/15/16 Naproxen [Naprosyn Tab] 1 tab PO Q8 PRN #15 tab 08/05/16 oxyCODONE/Acetaminophen [Percocet 1 ea PO Q6 #15 tab 08/05/16 5/325 mg Tab] predniSONE [predniSONE Tab] 2 tab PO DAILY #10 tab 08/05/16 traMADol [Ultram] 50 mg PO Q8H PRN #5 tab 10/20/16 Naproxen [Naprosyn] 500 mg PO BID PRN #20 tablet 12/14/16 Cephalexin [Keflex] 500 mg PO QID #40 capsule 01/09/17 Clindamycin [Cleocin] 300 mg PO QID #40 cap 01/09/17 oxyCODONE/Acetaminophen [Percocet 1 ea PO Q6 PRN #15 tab 01/09/17 5/325 mg Tab] Naproxen [Naprosyn] 500 mg PO BID PRN #15 tablet 03/17/17 traMADol [Ultram] 50 mg PO TID PRN #15 tab 10/17/17 Acetaminophen with Codeine 1 tab PO Q6H PRN #5 tab 12/22/17 [Tylenol with Codeine No. 3 300 mg-30 mg] - Allergies Allergies/Adverse Reactions: Allergies Allergy/AdvReac Type Severity Reaction Status Date / Time No Known Allergies Allergy Verified 10/17/17 13:19 Review of Systems ROS Statement: Except As Marked, All Systems Reviewed And Found Negative (As per HPI, otherwise negative) Musculoskeletal: Positive for: Shoulder Pain (Right) Physical Exam - Reviewed Nursing Documentation Reviewed: Yes Vital Signs Reviewed: Yes - Physical Exam Appears: Positive for: Non-toxic, No Acute Distress Head Exam: Positive for: ATRAUMATIC, NORMAL INSPECTION, NORMOCEPHALIC Skin: Positive for: Normal Color, Warm, Dry Eye Exam: Positive for: Normal appearance ENT: Positive for: Normal ENT Inspection Neck: Positive for: Normal, Painless ROM Cardiovascular/Chest: Negative for: Murmur Respiratory: Negative for: Accessory Muscle Use, Respiratory Distress Pulses-Radial (L): 2+ Pulses-Radial (R): 2+ Back: Positive for: Normal Inspection Extremity: Negative for: Normal ROM (Decreased ROM in right shoulder; full ROM in right elbow and wrist ), Tenderness, Deformity, Swelling Neurologic/Psych: Positive for: Alert, Oriented (x3) - ECG O2 Sat by Pulse Oximetry: 100 (RA) Pulse Ox Interpretation: Normal Medical Decision Making Medical Decision Making: Time: 12:41 Initial Impression: Right shoulder pain Plan: Oxycodone 1tab PO Right shoulder x-ray Shoulder x-ray normal. Disposition - Clinical Impression Clinical Impression: Right shoulder injury - Patient ED Disposition Is Patient to be Admitted: No Counseled Patient/Family Regarding: Diagnosis, Need For Followup - Disposition Referrals: Clayton Matamoros III, MD [Staff Provider] - Disposition: Routine/Home Disposition Time: 13:48 Condition: STABLE Prescriptions: Acetaminophen with Codeine [Tylenol with Codeine No. 3 300 mg-30 mg] 1 tab PO Q6H PRN #5 tab PRN Reason: Pain, Severe (8-10) Instructions: Rotator Cuff Injury (DC) Forms: [employer] (Urdu)
--- NOTE | 2017-12-22 14:34 | RAD ---
PROCEDURE: Radiographs of the Right Shoulder HISTORY: right shoulder pain COMPARISON: No prior. FINDINGS: BONES: No acute fracture. JOINTS: Unremarkable. SOFT TISSUES: Normal. OTHER FINDINGS: None. IMPRESSION: No demonstrated fracture or dislocation.
== END 2017-12-22 14:10 | disposition home or self-care (01) ==
LOC: H.ER 11:27
DX: S49.91XA Unspecified injury of right shoulder and upper arm, initial encounter (principal); X50.9XXA Other and unspecified overexertion or strenuous movements or postures, initial encounter; Y92.89 Other specified places as the place of occurrence of the external cause; M79.7 Fibromyalgia; F41.9 Anxiety disorder, unspecified; F32.9 Major depressive disorder, single episode, unspecified; I10 Essential (primary) hypertension

== ENCOUNTER 2018-02-17 14:28 | Emergency (ER) | payer MEDICARE, MEDICAID ==
[2018-02-17 14:28] VITALS: BMI 39.9
[2018-02-17 14:38] VITALS: BP 102/63; PULSE 76; RESP 16; O2SAT 99
[2018-02-17] MEDS ORDERED: Acetaminophen-Codeine 300/30 mg Tab PO STA (15:05)
--- NOTE | 2018-02-17 15:10 | ED PDOC ---
Lower Extremity Pain/Injury Time Seen by Provider: 02/17/18 14:40 Chief Complaint (Nursing): Pain, Chronic Chief Complaint (Provider): Foot Pain History Per: Patient History/Exam Limitations: no limitations Current Symptoms Are (Timing): Still Present Additional Complaint(s): 37-year-old female, with a past medical history of rheumatoid arthritis and fibromyalgia presents to ED for evaluation of diffuse joint pain, most notably bilateral foot pain that has been worsening for the past 3 days. Patient reports taking naprosyn, gabapentin, cymbalta on a daily basis for chronic pain , all of which were taken this morning prior to arrival with no relief. Denies recent trauma or falls. Patient has no other complaints at present. LMP: January 29 PMD: Dr. Hamlin Past Medical History Reviewed: Historical Data, Nursing Documentation, Vital Signs Vital Signs: Last Vital Signs Temp 98.7 F 02/17/18 14:35 Pulse 76 02/17/18 14:35 Resp 16 02/17/18 14:35 BP 102/63 02/17/18 14:35 Pulse Ox 99 02/17/18 14:35 - Medical History PMH: Anemia, Anxiety, Asthma, Depression, Fibromyalgia, HTN, Osteoporosis - Surgical History Surgical History: Appendectomy, Cholecystectomy, Hernia Repair (multiple), Tonsillectomy, (x1) - Family History Family History: States: Unknown Family Hx - Living Arrangements Living Arrangements: With Family - Social History Alcohol: Social - Home Medications Home Medications: Ambulatory Orders Medication Instructions Recorded Bisacodyl [Dulcolax] 10 mg RC BID PRN #10 supp.rect 02/15/16 Ciprofloxacin [Cipro] 500 mg PO BID #14 tab 02/15/16 Magnesium Citrate 50 ml PO BID PRN #1 bottle 02/15/16 traMADol [Ultram] 50 mg PO TID PRN #12 tab 02/15/16 Naproxen [Naprosyn Tab] 1 tab PO Q8 PRN #15 tab 08/05/16 oxyCODONE/Acetaminophen [Percocet 1 ea PO Q6 #15 tab 08/05/16 5/325 mg Tab] predniSONE [predniSONE Tab] 2 tab PO DAILY #10 tab 08/05/16 traMADol [Ultram] 50 mg PO Q8H PRN #5 tab 10/20/16 Naproxen [Naprosyn] 500 mg PO BID PRN #20 tablet 12/14/16 Cephalexin [Keflex] 500 mg PO QID #40 capsule 01/09/17 Clindamycin [Cleocin] 300 mg PO QID #40 cap 01/09/17 oxyCODONE/Acetaminophen [Percocet 1 ea PO Q6 PRN #15 tab 01/09/17 5/325 mg Tab] Naproxen [Naprosyn] 500 mg PO BID PRN #15 tablet 03/17/17 traMADol [Ultram] 50 mg PO TID PRN #15 tab 10/17/17 Acetaminophen with Codeine 1 tab PO Q6H PRN #5 tab 12/22/17 [Tylenol with Codeine No. 3 300 mg-30 mg] - Allergies Allergies/Adverse Reactions: Allergies Allergy/AdvReac Type Severity Reaction Status Date / Time No Known Allergies Allergy Verified 02/17/18 14:35 Review of Systems ROS Statement: Except As Marked, All Systems Reviewed And Found Negative Musculoskeletal: Positive for: Foot Pain (b/l), Other Physical Exam - Reviewed Nursing Documentation Reviewed: Yes Vital Signs Reviewed: Yes - Physical Exam Appears: Positive for: Well, Non-toxic, No Acute Distress Head Exam: Positive for: NORMOCEPHALIC Skin: Positive for: Normal Color, Warm, Dry Eye Exam: Positive for: EOMI, PERRL ENT: Positive for: Other (Airway patent (-) stridor) Neck: Positive for: Painless ROM, Supple Cardiovascular/Chest: Positive for: Regular Rate, Rhythm Respiratory: Positive for: Normal Breath Sounds (respirations even and nonlabored, speaking in full sentences.) Extremity: Positive for: Other ((+) Diffuse tenderness b/l plantar aspects of the feet, (+) Decreased ROM of ankles secondary to pain, (-) effusion, (-) ecchymosis, (-) erythema, (-) skin changes). Negative for: Pedal Edema, Calf Tenderness (or palpable cord) Neurologic/Psych: Positive for: Alert, Oriented (x3), Gait (steady) - Laboratory Results Urine POC: Negative - ECG O2 Sat by Pulse Oximetry: 99 (RA) Pulse Ox Interpretation: Normal Medical Decision Making Medical Decision Making: Time: 15:05 Impression(s): Acute on chronic foot pain Plan: - Podiatry Consult Time 15:10 Trevon UMAÑA discussed case with Podiatry resident, Sophia Patel. Podiatry resident is agreeable to evaluate patient in ED. Recommends bilateral foot X-Rays at this time. Time: 15:45 B/L foot X-Ray FINDINGS: BONES: Normal. No fracture. JOINTS: Normal. No osteoarthritis. SOFT TISSUE: Normal. OTHER FINDINGS: None . IMPRESSION: Normal Bone Xray. 1550 Podiatry at bedside. 1615 Per podiatry, patient can follow up in clinic next week. See consult note. On re-evaluation, patient reports improvement of symptoms. On exam, patient remains AAOx3, in no acute distress. On exam, neck is supple, lungs CTA, cardiac RRR, neuro exam shows no focal findings. Ambulatory in ED with a steady gait. VSS, stable for discharge. Diagnostic results d/w the patient in great detail. Dx of acute on chronic foot pain, plantar fasciitis d/w the patient. Based on history, exam and diagnostic results plan will be for discharge and outpatient podiatry follow up. Advised to follow up with primary care physician/podiatry in 1-2 days without fail. Advised to take medication as prescribed. Return to the emergency room at any time for any new or worsening symptoms. Patient states she fully agrees with and understands discharge instructions. States that she agrees with the plan and disposition. Verbalized and repeated discharge instructions and plan. I have given the patient opportunity to ask any additional questions. Scribe Attestation: Documented by Jefferson Angeles, acting as a scribe for Poonam Lester PA-C. Provider Scribe Attestation: All medical record entries made by the Scribe were at my direction and personally dictated by me. I have reviewed the chart and agree that the record accurately reflects my personal performance of the history, physical exam, medical decision making, and the department course for this patient. I have also personally directed, reviewed, and agree with the discharge instructions and disposition. Disposition - Clinical Impression Clinical Impression: Chronic foot pain, Plantar fasciitis, bilateral, Achilles tendinitis - Patient ED Disposition Is Patient to be Admitted: No Counseled Patient/Family Regarding: Studies Performed, Diagnosis, Need For Followup - Disposition Referrals: Podiatry Clinic [Outside] Disposition: Routine/Home Disposition Time: 16:16 Condition: STABLE Additional Instructions: FOLLOW UP WITH PODIATRY DIRECTED. RETURN TO ED WITH ANY NEW OR WORSENING SYMPTOMS. CONTINUE CURRENT PAIN MEDICATIONS. Instructions: Chronic Pain (DC), Heel Pain (Caused by Plantar Fasciitis) (DC), Muscle and Bone Pain (DC), Plantar Fasciitis Exercises, Achilles Tendinopathy Exercises, Achilles Tendinitis (ED) Forms: [facility] [employer] (German) Print Language: MALTESE - POA Present On Arrival: None
--- NOTE | 2018-02-17 15:46 | RAD ---
HISTORY: pain COMPARISON: No prior FINDINGS: BONES: Normal. No fracture. JOINTS: Normal. No osteoarthritis. SOFT TISSUE: Normal. OTHER FINDINGS: None . IMPRESSION: Normal Bone Xray.
--- NOTE | 2018-02-17 16:15 | CP.PCM.CON ---
History of Present Illness - History of Present Illness History of Present Illness: A 37 Y/O F patient with PMH of osteoporosis, Fibromyalgia and Rheumatoid arthritis seen and evaluated at the ED for bilateral foot pain. Patient is AAO X 3, sitting in her chair in NAD. Patient states that the pain in both feet is 10/10, mainly in the bottom and the back of her feet, R>L, not relieved by analgesics like Tylenol. Patient states that the pain started 3 days ago and got worse. Patient states that she couldnt sleep last night due to pain. Patient denies any other pedal complaints. Patient denies any trauma to her feet. Patient states that few days ago she had episode of fever, sore throat, cough and SOB. She denies any recent N or V. Admits to a history of taking several pain meds including Naprosyn, Gabapentin and Tylenol. States she is chronically in pain. 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) Other/Comment: DM due to PCOS - HEMATOLOGICAL/ONCOLOGICAL Hx Anemia: Yes - INTEGUMENTARY Hx Dermatological Problems: No - MUSCULOSKELETAL/RHEUMATOLOGICAL Hx Osteoporosis: Yes - GASTROINTESTINAL Hx Gastrointestinal Disorders: No - GENITOURINARY/GYNECOLOGICAL Hx Genitourinary Disorders: Yes Other/Comment: PCOS, Right Ovarian Cyst - PSYCHIATRIC Hx Anxiety: Yes Hx Depression: Yes - SURGICAL HISTORY Hx Appendectomy: Yes Hx Cholecystectomy: Yes Hx Tonsillectomy: Yes - ANESTHESIA Hx Anesthesia: Yes Hx Anesthesia Reactions: No Hx Malignant Hyperthermia: No Meds Allergies/Adverse Reactions: Allergies Allergy/AdvReac Type Severity Reaction Status Date / Time No Known Allergies Allergy Verified 02/17/18 14:35 Physical Exam - Constitutional Appears: Well, Non-toxic, No Acute Distress - Extremities Exam Additional comments: Lower extremity focused exam Vasc: DP/PT 2/4 B/L. Cap refill < 3 sec in all digits, Temp gradient warm to cool. Pedal hair present. No edema or varicosities. Minimal swelling noted over the R Achilles tendon. Neuro: Protective and epicritic sensation intact in the L foot, diminished in the R foot specially at the 1st and 5th toes. Derm: No open lesions, no clinical signs of active bacterial infections. No erythema, no ecchymosis. Toe nails cut to hygienic length x10. MSK: Pain on palpation of the Achilles tendon R > L. Tenderness to palpation of plantar medial calcaneal tubercle B/L. Ankle dorsiflexion is limited with knee extended and knee flexed B/L. Mild tenderness elicited with passive ankle dorsiflexion. Pain with passive ROM of all the foot joints B/L, R > L. Left foot hammer toes 2-5, R foot claw toes 2-5. Left foot tailors bunion deformity noted. Muscle power intact 5/5 in all groups B/L. Pes cavus foot type B/L. - Neurological Exam Neurological exam: Alert, Oriented x3 - Psychiatric Exam Psychiatric exam: Normal Affect, Normal Mood Results - Vital Signs Recent Vital Signs: Last Vital Signs Temp 98.7 F 02/17/18 14:35 Pulse 76 02/17/18 14:35 Resp 16 02/17/18 14:35 BP 102/63 02/17/18 14:35 Pulse Ox 99 02/17/18 16:05 Assessment & Plan - Assessment and Plan (Free Text) Assessment: 37 y/o female with Achilles tendinitis and accompanying plantar fasciitis B/L secondary to biomechanics Plan: Pt seen and evaluated in ED Discussed with attending Dr. Perry X-rays of bilateral feet reviewed- no acute osseous findings Pt recommended to perform at home stretching exercises for plantar fasciitis as well as calf stretches, following by flash Recommended arch supports such as Superfeet and Powerstep Advised patient that she should purchase more supportive widened shoegear to accommodate her foot type, such as Asics or New Balance Pt to follow up with Dr. Perry in his office or [facility] podiatry clinic with Dr. Ball Thank you for this consult
[2018-02-17 16:31] VITALS: TEMP 98.5
== END 2018-02-17 16:30 | disposition home or self-care (01) ==
LOC: H.ER 14:28
DX: M72.2 Plantar fascial fibromatosis (principal); M76.60 Achilles tendinitis, unspecified leg; G89.29 Other chronic pain; D64.9 Anemia, unspecified; E11.9 Type 2 diabetes mellitus without complications; I10 Essential (primary) hypertension; M06.9 Rheumatoid arthritis, unspecified; M79.7 Fibromyalgia

== ENCOUNTER 2018-03-04 20:19 | Emergency (ER) | payer MEDICARE, MEDICAID ==
[2018-03-04 20:20] VITALS: BMI 39.9
[2018-03-04 20:26] VITALS: BP 114/81; PULSE 80; RESP 18; TEMP 98.7; O2SAT 97
--- NOTE | 2018-03-04 20:54 | ED PDOC ---
Upper Extremity Pain/Injury Time Seen by Provider: 03/04/18 20:26 Chief Complaint (Nursing): Upper Extremity Problem/Injury Chief Complaint (Provider): Right Shoulder Pain History Per: Patient History/Exam Limitations: no limitations Onset/Duration Of Symptoms: Days (x2) Current Symptoms Are (Timing): Still Present Additional Complaint(s): 38 year old female presents to the ED for evaluation of right shoulder pain s/p her four year old son kicking her in the shoulder while trying to remove him from a bouncy house yesterday. Patient notes about three months ago, the same shoulder was injured pulling a stroller up stairs, and she believes her son re- injured it. Denies any neck pain. PMD: Zeyad Hamlin Past Medical History Reviewed: Historical Data, Nursing Documentation, Vital Signs Vital Signs: Last Vital Signs Temp 98.7 F 03/04/18 20:21 Pulse 80 03/04/18 20:21 Resp 18 03/04/18 20:21 BP 114/81 03/04/18 20:21 Pulse Ox 97 03/04/18 20:21 - Medical History PMH: Anemia, Anxiety, Asthma, Depression, Fibromyalgia, HTN, Osteoporosis, Chronic Kidney Disease - Surgical History Surgical History: Appendectomy, Cholecystectomy, Hernia Repair (multiple), Tonsillectomy, (x1) - Family History Family History: States: Unknown Family Hx - Social History Current smoker - smoking cessation education provided: No Alcohol: Social Drugs: Denies - Immunization History Hx Tetanus Toxoid Vaccination: No Hx Influenza Vaccination: No Hx Pneumococcal Vaccination: No - Home Medications Home Medications: Ambulatory Orders Medication Instructions Recorded Bisacodyl [Dulcolax] 10 mg RC BID PRN #10 supp.rect 02/15/16 Ciprofloxacin [Cipro] 500 mg PO BID #14 tab 02/15/16 Magnesium Citrate 50 ml PO BID PRN #1 bottle 02/15/16 traMADol [Ultram] 50 mg PO TID PRN #12 tab 02/15/16 Naproxen [Naprosyn Tab] 1 tab PO Q8 PRN #15 tab 08/05/16 oxyCODONE/Acetaminophen [Percocet 1 ea PO Q6 #15 tab 08/05/16 5/325 mg Tab] predniSONE [predniSONE Tab] 2 tab PO DAILY #10 tab 08/05/16 traMADol [Ultram] 50 mg PO Q8H PRN #5 tab 10/20/16 Naproxen [Naprosyn] 500 mg PO BID PRN #20 tablet 12/14/16 Cephalexin [Keflex] 500 mg PO QID #40 capsule 01/09/17 Clindamycin [Cleocin] 300 mg PO QID #40 cap 01/09/17 oxyCODONE/Acetaminophen [Percocet 1 ea PO Q6 PRN #15 tab 01/09/17 5/325 mg Tab] Naproxen [Naprosyn] 500 mg PO BID PRN #15 tablet 03/17/17 traMADol [Ultram] 50 mg PO TID PRN #15 tab 10/17/17 Acetaminophen with Codeine 1 tab PO Q6H PRN #5 tab 12/22/17 [Tylenol with Codeine No. 3 300 mg-30 mg] - Allergies Allergies/Adverse Reactions: Allergies Allergy/AdvReac Type Severity Reaction Status Date / Time No Known Allergies Allergy Verified 02/17/18 14:35 Review of Systems ROS Statement: Except As Marked, All Systems Reviewed And Found Negative Musculoskeletal: Positive for: Shoulder Pain (right). Negative for: Neck Pain Physical Exam - Reviewed Nursing Documentation Reviewed: Yes Vital Signs Reviewed: Yes - Physical Exam Appears: Positive for: No Acute Distress Head Exam: Positive for: ATRAUMATIC, NORMOCEPHALIC Skin: Positive for: Normal Color, Warm, Dry Neck: Positive for: Normal, Painless ROM Extremity: Positive for: Normal ROM (full ROM passively to left shoulder. right shoulder: limited ROM to 75 degrees, external rotation limited secondary to pain , full internal ROM), Tenderness (right clavial tenderness to palpation) Neurologic/Psych: Positive for: Alert, Oriented - ECG O2 Sat by Pulse Oximetry: 97 (RA) Pulse Ox Interpretation: Normal Medical Decision Making Medical Decision Making: Time: 2051 Initial Impression: shoulder pain s/p being kicked Initial Plan: --Toradol 60 mg IM --Tylenol 650 mg PO --Right shoulder XR 2128 XR read and interpreted by me: no separation, dislocation, or fracture noted. Patient made aware of these results, and all questions answered at this time. Scribe Attestation: Documented by Candida Gallagher, acting as a scribe for Jorge Barros PA-C. Provider Scribe Attestation: All medical record entries made by the Scribe were at my direction and personally dictated by me. I have reviewed the chart and agree that the record accurately reflects my personal performance of the history, physical exam, medical decision making, and the department course for this patient. I have also personally directed, reviewed, and agree with the discharge instructions and disposition. Disposition - Clinical Impression Clinical Impression: Contusion shoulder/arm, Shoulder pain - Patient ED Disposition Is Patient to be Admitted: No Doctor Will See Patient In The: Office Counseled Patient/Family Regarding: Diagnosis, Need For Followup - Disposition Referrals: Zeyad Hamlin MD [Family Provider] - Disposition: Routine/Home Disposition Time: 21:32 Condition: STABLE Additional Instructions: tylenol 650mg every 8 hours AND motrin 600mg every 6 hours Instructions: Contusion (DC), Shoulder Pain (DC) Forms: [employer] (Norwegian)
--- NOTE | 2018-03-05 12:57 | RAD ---
Date of service: 03/04/2018 PROCEDURE: Radiographs of the Right Shoulder HISTORY: r/o acute injury clavicle COMPARISON: 12/22/2017 right shoulder radiographs FINDINGS: BONES: Normal. No fracture. JOINTS: Normal. Glenohumeral and acromioclavicular joints preserved. No osteoarthritis. SOFT TISSUES: Normal. OTHER FINDINGS: None. IMPRESSION: Normal radiographs of the right shoulder.No significant interval change compared to the prior examination(s).
== END 2018-03-04 21:40 | disposition home or self-care (01) ==
LOC: H.ER 20:19
DX: M25.511 Pain in right shoulder (principal); S40.011A Contusion of right shoulder, initial encounter; W50.1XXA Accidental kick by another person, initial encounter; M79.7 Fibromyalgia; I12.9 Hypertensive chronic kidney disease with stage 1 through stage 4 chronic kidney disease, or unspecified chronic kidney disease; N18.9 Chronic kidney disease, unspecified
CPT/HCPCS: 73030; 81025; 96372; 99283; J1885